=== PATIENT | male | born 1995 | race Two or more races ===

== ENCOUNTER 2024-10-26 12:30 | Emergency (ER) | payer SELFPAY ==
[2024-10-26] MEDS ORDERED: Sodium Chloride 0.9% 10 ML Syringe FLUSH PRN (12:33)
[2024-10-26] MEDS ORDERED: Sodium Chloride 0.9% 2.5 ML Syringe FLUSH PRN (12:33)
[2024-10-26 14:21] LABS: BASOPHILS ABSOLUTE AUTO 0.06 K/uL (0.00-0.20); BASOPHILS PERCENT AUTO 0.4 % (0.0-1.0); EOSINOPHILS ABSOLUTE AUTO 0.11 K/uL (0.00-0.45); EOSINOPHILS PERCENT AUTO 0.8 % (0.0-6.0); HEMATOCRIT 52.9 % (42.0-52.0); HEMOGLOBIN 18.1 g/dL (14.0-18.0); IMMATURE GRAN ABSOLUTE AUTO 0.06 K/uL (0.00-0.05); IMMATURE GRAN PERCENT AUTO 0.4 % (0.0-0.4); LYMPHOCYTES PERCENT AUTO 22.9 % (24.0-44.0); MEAN CORPUSCULAR HEMOGLOBIN 28.8 pg (28.0-32.0); MEAN CORPUSCULAR HGB CONC 34.2 g/dL (32.0-36.0); MEAN CORPUSCULAR VOLUME 84.2 fL (83.0-99.0); MEAN PLATELET VOLUME 9.3 fL (9.4-12.4); MONOCYTES ABSOLUTE AUTO 0.86 K/uL (0.00-0.80); NEUTROPHILS PERCENT AUTO 69.5 % (41.0-71.0); PLATELET COUNT,PLT 342 K/uL (150-400); RED BLOOD CELL COUNT 6.28 M/uL (4.52-5.90); WHITE BLOOD CELL COUNT,WBC 14.39 K/uL (3.9-11.3)
[2024-10-26 15:02] LABS: ALANINE AMINOTRANSFERASE,ALT 31 IU/L (14-63); ALBUMIN 3.8 g/dL (3.4-5.0); ALKALINE PHOSPHATASE 119 U/L (46-116); ASPARTATE AMNIOTRANSFERASE,AST 22 IU/L (15-37); BILIRUBIN TOTAL 1.1 mg/dL (0.2-1.0); BLOOD UREA NITROGEN,BUN 10 mg/dL (7.0-18.0); CALCIUM 9.5 mg/dL (8.5-10.1); CARBON DIOXIDE,CO2 26.5 mmol/L (21.0-32.0); CHLORIDE,CL 104 mmol/L (98-107); CREATININE 0.8 mg/dL (0.8-1.3); EST CRCL DRUG DOSING (CG) 104.27 mL/min; GLUCOSE RANDOM 89 mg/dL (74-106); PROTEIN TOTAL,TP 8.9 g/dL (6.4-8.2); SODIUM,NA 141 mmol/L (136-148)
[2024-10-26 15:03] LABS: A/G RATIO 0.8 (0.9-1.6); ESTIMATED GFR 122 mL/min (>60)
[2024-10-26] MEDS: Doxycycline 100 MG Cap PO ONE (15:36)
== END 2024-10-26 17:01 | disposition home or self-care (01) ==
LOC: MERGE 12:30 → MW.ED 12:30
DX: J18.9 Pneumonia, unspecified organism (principal); R07.9 Chest pain, unspecified; D72.829 Elevated white blood cell count, unspecified; Z75.8 Other problems related to medical facilities and other health care
CPT/HCPCS: 36415; 71046; 80053; 84484; 85025; 85379; 87428; 93005; 99285; A9270; 93010; 99283